=== PATIENT | male | born 1960 | race Caucasian/White ===

== ENCOUNTER 2025-05-11 10:44 | Outpatient (CLI) | payer OTHER, SELFPAY ==
--- NOTE | ~2025-05-11 | US_ITS ---
Limited Abdominal Sonogram: Real-time sonographic imaging of the right upper quadrant was performed. Clinical History: Abnormal liver enzymes Findings: The liver appears echogenic, with no evidence of bile duct dilatation. Hypoechoic area tung r the gallbladder fossa could reflect fatty sparing versus possibly mass, measuring up to 2.1 cm in d iameter. Main portal vein demonstrates normal direction of flow. The gallbladder is well distended, a nd appears normal with no evidence of gallstone or wall thickening. The common bile duct measures 5 m m. The visualized pancreas, aorta, and IVC are unremarkable. Impression: Diffuse fatty infiltration of the liver. Hypoechoic area near the gallbladder fossa could reflect fatty sparing versus possibly mass. Consider follow-up pre and postcontrast hepatic MR to further confirm fatty sparing. Reviewed, dictated and finalized at [facility]. Impression: Diffuse fatty infiltration of the liver. Hypoechoic area near the gallbladder fossa could reflect fatty sparing versus p ossibly mass. Consider follow-up pre and postcontrast hepatic MR to further con firm fatty sparing.
== END 2025-05-11 10:45 | disposition home or self-care (01) ==
PROVIDERS: PCP Internal Medicine; Visit Provider Internal Medicine
DX: R74.01 Elevation of levels of liver transaminase levels (principal); K76.0 Fatty (change of) liver, not elsewhere classified
CPT/HCPCS: 76705